=== PATIENT | male | born 1990 | race Caucasian/White ===

== ENCOUNTER 2019-05-23 17:43 | Emergency (ER) | payer OTHER, SELFPAY ==
--- NOTE | ~2019-05-23 | XR_ITS ---
EXAMINATION: XR chest 2V 05/23/2019 18:50 INDICATION: Chest pressure radiating to the left arm PROCEDURE: 2 view chest COMPARISON: No prior studies for comparison. FINDINGS: The lungs are clear. The cardiomediastinal silhouette is within normal limits. There are no pleural effusions. There is no pneumothorax suspected. IMPRESSION: 1: NO ACUTE CARDIOPULMONARY DISEASE. Reviewed, dictated and finalized at location A. 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
--- NOTE | 2019-05-23 17:44 | ECG_ITS ---
Measurements Intervals [place] Rate: 73 P: 52 VT: 145 QRS: 58 QRSD: 120 T: 64 QT: 369 QTc: 409 Interpretive Statements SINUS RHYTHM RSR' IN V1 OR V2, CONSIDER RIGHT VENTRICULAR HYPERTROPHY OR RIGHT VCD MINIMAL Q WAVES- INFERIOR LEADS BORDERLINE T WAVE ABNORMALITY- ANT/INF LEADS BORDERLINE ECG Electronically Signed On 05-23-2019 17:58:25 ECONOMIC ANALYSIS DIRECTOR by Yoni Juarez D.O.
[2019-05-23 17:47] VITALS: BP 157/92; PULSE 64; RESP 18; TEMP 36.2; O2SAT 100
[2019-05-23 18:05] LABS: Basophils Absolute Auto 0.1 K/mm3 (0.0-0.1); Basophils Percent Auto 0.8 % (0.2-1.2); Eosinophils Absolute Auto 0.1 K/mm3 (0-0.3); Eosinophils Percent Auto 1.9 % (0-4.4); Hematocrit 47.9 % (42.0-52.0); Hemoglobin 16.5 g/dL (14.0-18.0); Immature Granulocyte Absolute 0.01 K/mm3 (0.00-0.031); Immature Granulocyte Percent A 0.2 % (0-0.5); Lymphocytes Absolute Auto 2.22 K/mm3 (0.9-3.2); Lymphocytes Percent Auto 34.5 % (18.3-44.2); Mean Corpuscular HGB Conc 34.4 g/dl (32-36); Mean Corpuscular Hemoglobin 30.5 pg (26-34); Mean Corpuscular Volume 88.5 fl (80-100); Mean Platelet Volume 10.4 fl (7.4-10.4); Monocytes Absolute Auto 0.7 K/mm3 (0.1-0.6); Monocytes Percent Auto 10.3 % (2.6-8.5); Neutrophils Absolute Auto 3.4 K/mm3 (1.3-6.7); Neutrophils Percent Auto 52.3 % (45.5-73.1); Platelet Count Result 263 k/mm3 (150-375); Red Blood Count 5.41 M/mm3 (4.6-6.20); Red Cell Distribution Width 12.4 % (11.5-14.5); White Blood Count 6.4 K/mm3 (4.5-10.0)
[2019-05-23 18:10] LABS: Prothrombin Time 13.2 Seconds (11.1-14.7)
[2019-05-23 18:11] LABS: Partial Thromboplastin Time 27.1 SECONDS (22.3-36.8)
[2019-05-23 18:16] LABS: Blood Urea Nitrogen 17 mg/dL (9-20); Calcium 9.8 mg/dL (8.4-10.2); Carbon Dioxide 21 mmol/L (22-30); Chloride 100 mmol/L (98-107); Estimated CRCL calculation 118 ml/min; Estimated Glomerular Filt Rate > 60; Glucose 93 mg/dL (75-110); Potassium 3.7 mmol/L (3.4-5.0); Sodium 140 mmol/L (137-145)
[2019-05-23 18:28] LABS: Troponin I < 0.012 ng/mL (0.000-0.034)
[2019-05-23 21:25] LABS: Troponin I < 0.012 ng/mL (0.000-0.034)
--- NOTE | 2019-05-23 22:16 | PC.NURSE ---
Pt states he forgot to mention earlier he broke into a sweat while having chest pain earlier while driving, then decided to come in to emergency room.
--- NOTE | 2019-05-23 22:16 | ED.CHESTPAIN ---
HPI - Chest Pain General Chief Complaint: Chest Pain Stated Complaint: PRESSURE IN MY CHEST Time Seen by Provider: 05/23/19 22:15 Source: patient Mode of arrival: ambulatory Limitations: no limitations History of Present Illness HPI narrative: 28 yo male with h/o anxiety who presents left chest tightness just prior to arrival. PAtient states he has left chest tightness going into his left arm with associated sob, anxiousness and tingling all over. He states this last a few minutes. He reports he has had similar episodes in the past and his most recent episode was 2 weeks ago. He was evaluated at [facility] at that time. He is scheduled for stress test and cardiac evaluation by Dr. Juarez in a couple weeks. He denies pain radiating to his back . MD complaint: chest pain Onset (ago): minute(s) Related Data Home Medications Medication Instructions Recorded Confirmed buspirone mg 05/23/19 escitalopram oxalate mg 05/23/19 Allergies Allergy/AdvReac Type Severity Reaction Status Date / Time No Known Allergies Allergy Verified 05/23/19 17:51 Review of Systems Constitutional: Constitutional: Denies chills and Denies fever(s) Cardiovascular: Cardiovascular: Reports chest pain, Denies rapid heart rate and Denies slow heart rate Respiratory: Respiratory: Denies cough, Reports dyspnea and Denies wheezing Gastrointestinal: Gastrointestinal: Denies abdominal pain, Reports nausea and Denies vomiting Musculoskeletal: Musculoskeletal: Denies back pain and Reports muscle cramps Psychiatric: Psychiatric: Reports anxiety PMFSH Past Medical History Medical History (Updated 05/23/19 @ 22:50 by Brittany Chowdhury MD) Anxiety Social History Social History (Updated 05/23/19 @ 22:45 by Brittany Chowdhury MD) Tobacco type: smokeless tobacco Smokeless tobacco user: chewing tobacco Gender identity (if verbalized by the patient): Male Exam Narrative: Exam Narrative: GENERAL: Well-appearing, well-nourished, and in no acute distress. HEAD: Normocephalic, atraumatic EYES: PERRLA and EOMI, conjunctiva clear without discharge THROAT:Mucous membranes moist, Oropharynx normal without erythema, exudate, peritonsillar swelling or fluctuance NECK: Supple, without lymphadenopathy or mass RESPIRATORY: No respiratory distress, Airway patent, Respirations non-labored, Clear to auscultation without rales, rhonchi or wheeze HEART: Regular rate and rhythm. No murmur heard. Normal peripheral pulses. ABDOMEN: Soft, nontender, nondistended, normal active bowel sounds. No masses. No rebound or guarding, No organomegaly. EXTREMITIES: No edema, normal strength with full range of motion. SKIN: Warm, dry, normal color without rash NEURO: Alert and oriented x3. CN 2-12 grossly intact. No focal deficits. PSYCH: Normal mood and affect. Course Reevaluation(s) Reevaluation #1: I Discussed with patient HEart score of 1 and he is outpatient candidate since symptoms resolved. He has been ruled out for [place]. HE is PErC negative. No significant difference in BP to suggest Aortic dissection or ruptures aneurysm. He is already scheduled for stress test per patient. Patient and family are agreeable. Date: 05/23/19 Time: 22:47 Vital Signs Vital signs: Vital Signs Temperature 97.2 F L 05/23/19 17:47 Pulse Rate 64 05/23/19 17:47 Respiratory Rate 18 05/23/19 17:47 Blood Pressure 157/92 H 05/23/19 17:47 Pulse Oximetry 100 05/23/19 17:47 Temperature 97.2 F L 05/23/19 17:47 Pulse Rate 95 05/23/19 22:18 Respiratory Rate 18 05/23/19 17:47 Blood Pressure 139/102 H 05/23/19 22:43 Pulse Oximetry 100 05/23/19 17:47 MDM - Chest Pain Differential Diagnosis Differential diagnosis: Likely stable angina, atypical chest pain, costochondritis and chest pain Lab Data Attestation: I reviewed the patient's lab results. Result diagrams: 05/23/19 17:53 05/23/19 17:53 Labs: Lab Result
[2019-05-23 22:18] VITALS: PULSE 95
[2019-05-23 22:43] VITALS: BP 139/102
[2019-05-23 23:40] VITALS: BP 138/83; PULSE 77; RESP 16; O2SAT 100
== END 2019-05-23 23:40 | disposition home or self-care (01) ==
PROVIDERS: Family Medicine; Emergency Provider General Practice; PCP Emergency Medicine
DX: R07.89 Other chest pain (principal); F41.9 Anxiety disorder, unspecified; F17.220 Nicotine dependence, chewing tobacco, uncomplicated
CPT/HCPCS: 36415; 71046; 80048; 84484; 85025; 85610; 85730; 93005; 99284

== ENCOUNTER 2019-06-16 09:16 | Outpatient (CLI) | payer OTHER, SELFPAY ==
--- NOTE | 2019-06-16 09:45 | EST_ITS ---
Patient Info Name: Fermin Vernon Age: 28 years : 1990 Gender: Male Ht: 70 in Wt: 240 lbs BSA: 2.36 m2 Exam Date: 06/16/2019 9:49 AM Exam Location: [facility] Stress Patient Status: Outpatient Admit Date: 06/16/2019 Staff Ordering Physician: Yoni Juarez DO Attending Provider: Yoni Juarez DO Exercise Technologist: Kelley Melton RDCS Exercise Physician: Yoni Juarez DO Exam Type: CA stress test treadmill Study Info Indications R07.89 - Other chest pain A treadmill exercise stress test was performed. Summary 1. 1. Negative [facility] exercise stress test for ischemic ST changes by ECG criteria. 2. 2. Good functional capacity, achieving 12 METs of workload. 3. 3. Appropriate HR response to exercise. 4. 4. Appropriate HR recovery at 1 minute post exercise. 5. 5. No imaging with stress testing. 6. 6. Patient informed of the above results. Protocol: [facility] Stress ECG Details Stage: REST Duration (min): 5 min : 10 sec Speed (mph): 0.0 Grade (%): 0 HR (bpm): 74 SBP (mmHg): 138 DBP (mmHg): 99 METS: --- Stage: REST Duration (min): 9 min : 1 sec Speed (mph): 0.0 Grade (%): 0 HR (bpm): 94 SBP (mmHg): 138 DBP (mmHg): 99 METS: --- Stage: STAGE 1 Duration (min): 1 min : 0 sec Speed (mph): 1.7 Grade (%): 10 HR (bpm): 119 SBP (mmHg): 138 DBP (mmHg): 99 METS: --- Stage: STAGE 1 Duration (min): 2 min : 0 sec Speed (mph): 1.7 Grade (%): 10 HR (bpm): 116 SBP (mmHg): 138 DBP (mmHg): 99 METS: --- Stage: STAGE 1 Duration (min): 3 min : 0 sec Speed (mph): 1.7 Grade (%): 10 HR (bpm): 122 SBP (mmHg): 205 DBP (mmHg): 103 METS: --- Stage: STAGE 2 Duration (min): 1 min : 0 sec Speed (mph): 2.5 Grade (%): 12 HR (bpm): 128 SBP (mmHg): 205 DBP (mmHg): 103 METS: --- Stage: STAGE 2 Duration (min): 2 min : 0 sec Speed (mph): 2.5 Grade (%): 12 HR (bpm): 137 SBP (mmHg): 173 DBP (mmHg): 86 METS: --- Stage: STAGE 2 Duration (min): 3 min : 0 sec Speed (mph): 2.5 Grade (%): 12 HR (bpm): 139 SBP (mmHg): 173 DBP (mmHg): 86 METS: --- Stage: STAGE 3 Duration (min): 1 min : 0 sec Speed (mph): 3.4 Grade (%): 14 HR (bpm): 154 SBP (mmHg): 174 DBP (mmHg): 84 METS: --- Stage: STAGE 3 Duration (min): 2 min : 0 sec Speed (mph): 3.4 Grade (%): 14 HR (bpm): 162 SBP (mmHg): 174 DBP (mmHg): 84 METS: --- Stage: STAGE 3 Duration (min): 3 min : 0 sec Speed (mph): 3.4 Grade (%): 14 HR (bpm): 169 SBP (mmHg): 186 DBP (mmHg): 89 METS: --- Stage: STAGE 4 Duration (min): 1 min : 0 sec Speed (mph): 4.2 Grade (%): 16 HR (bpm): 187 SBP (mmHg): 186 DBP (mmHg): 89 METS: --- Stage: STAGE 4 Duration (min): 2 min : 0 sec Speed (mph): 4.2 Gr
== END 2019-06-16 09:17 | disposition home or self-care (01) ==
PROVIDERS: PCP Emergency Medicine; Visit Provider Internal Medicine Cardiovascular Disease
DX: R07.9 Chest pain, unspecified (principal)
CPT/HCPCS: 93017